=== PATIENT | female | born 1965 | race Two or more races ===

== ENCOUNTER 2022-01-27 17:18 | Emergency (ER) | payer MEDICARE, OTHER ==
[~2022-01-27] VITALS: Ht 154.9 cm; Wt 86.0 kg
[2022-01-27 17:32] VITALS: BP 176/92
[2022-01-27 18:04] LABS: Urine Bacteria NONE SEEN /hpf (None Seen); Urine Blood Negative /uL (Negative); Urine Specific Gravity 1.025 (1.001-1.035); Urine WBC 1 /hpf (0 - 5)
[2022-01-27] MEDS ORDERED: PRED20TA2 PO (18:47)
== END 2022-01-27 20:10 | disposition home or self-care (01) ==
LOC: ER 17:20
DX: M32.9 Systemic lupus erythematosus, unspecified (principal); E11.9 Type 2 diabetes mellitus without complications
CPT/HCPCS: 81001